=== PATIENT | female | born 1995 | race Two or more races ===

== ENCOUNTER 2020-06-06 17:13 | Inpatient (IN) ==
[2020-06-06] MEDS ORDERED: LACTATED RINGERS 1,000 ML IV PRN (17:38)
[2020-06-06] MEDS ORDERED: ONDANSETRON 4 MG/2 ML VIAL IV PRN (17:38)
[2020-06-06 18:11] LABS: Basophils % 0.3 % (0.0-0.8); Eosinophils # 0.2 10*3/uL (0.0-0.87); Hemoglobin 10.7 GM/DL (12.0-16.0); Immature Granulocytes % 0.5 %; Immature Granulocytes Absolute 0.05 #; Lymphocytes # 1.7 10*3/uL (1.4-4.0); Lymphocytes % 16.4 % (21.3-54.2); Mean Corpuscular HGB Conc 31.5 GM/DL (32-36); Mean Corpuscular Volume 79.1 FL (87-102); Mean Platelet Volume 10.3 FL (9.6-12.0); Monocytes % 4.9 % (1.7-12.7); NRBC # 0.02 10*3/uL; Neutrophils % 75.9 % (38.7-73.9); Platelet Count 243 T/CUMM (130-400); Red Cell Distribution Width 14.9 % (9.3-17.3); White Blood Count 10.6 T/CUMM (4-12)
[2020-06-06 18:34] LABS: Alanine Aminotransferase 22 U/L (13-56); Albumin 2.6 G/DL (3.4-5.0); Alkaline Phosphatase 252 U/L (45-117); Aspartate Amino Transferase 21 U/L (0-37); Bilirubin,Total < 0.39 MG/DL (0.2-1.0); Blood Urea Nitrogen 12 MG/DL (7-18); Calcium 8.7 MG/DL (8.5-10.1); Estimated Glom Filtration Rate 120 ML/MIN; Glucose 93 MG/DL (74-106); Total Protein 7.1 G/DL (6.4-8.3)
[2020-06-06] MEDS ORDERED: miSOPROStoL 100 MCG TABLET VAG SCH (23:00)
[2020-06-06] MEDS ORDERED: BUTORPHANOL 2 MG/ML VIAL IV PRN (23:45)
[2020-06-07] MEDS ORDERED: ePHEDrine 50 MG/ML VIAL IV PRN (03:14)
[2020-06-07] MEDS ORDERED: FAMOTIDINE 20 MG/2 ML VIAL IV ONE (03:14)
[2020-06-07] MEDS ORDERED: LACTATED RINGERS 1,000 ML IV ONE (03:14)
[2020-06-07] MEDS ORDERED: CITRIC ACID/SODIUM CITRATE 30 ML UDCUP PO ONE (03:14)
[2020-06-07] MEDS ORDERED: NALOXONE 0.4 MG/ML VIAL IV PRN (03:14)
[2020-06-07] MEDS ORDERED: fentaNYL 2 MCG/ROPIV 0.2% EPID 100 ML EPIDURAL SCH (03:30)
[2020-06-07 06:51] LABS: Bilirubin,Urine Negative (Negative); Blood, Urine Large mg/dL (Negative); Glucose,Urine (UA) Negative (Negative); Ketones,Urine 100 mg/dL (Negative); Mucus,Urine Occasional /LPF (Occasional); Nitrite,Urine Negative (Negative); Protein,Urine Negative; RBC,Urine 533 /HPF (0-4); Squamous Epithelial Cell,Urine Occasional /HPF (0-10); Urine Appearance YELLOW (Clear); Urine Color Yellow (Yellow); Urine Urobilinogen 0.2 EU/DL (0.2-1.0); WBC,Urine 3 /HPF (0-6)
[2020-06-07] MEDS ORDERED: TRANEXAMIC ACID 1,000 MG/10 ML VIAL ONE (07:57)
[2020-06-07] MEDS ORDERED: miSOPROStoL 200 MCG TABLET ONE (07:57)
[2020-06-07] MEDS ORDERED: METHYLERGONOVINE 0.2 MG/1 ML AMP ONE (07:58)
[2020-06-07] MEDS ORDERED: CARBOPROST TROMETHAMINE 250 MCG/ML AMP IM ONE (07:58)
[2020-06-07] MEDS ORDERED: OXYTOCIN/LR 20 UNIT/1,000 ML BAG IV ONE ×3 (07:58→10:26)
[2020-06-07] MEDS ORDERED: SODIUM CHLORIDE 0.9% 0 ML IV ONE (08:00)
[2020-06-07] MEDS ORDERED: miSOPROStoL 200 MCG TABLET PO ONE (10:20)
[2020-06-07 10:44] LABS: Cord Arterial Blood HCO3 23.1 MMOL/L
[2020-06-07] MEDS ORDERED: ACETAMINOPHEN 325 MG TABLET PO PRN (12:39)
[2020-06-07] MEDS ORDERED: IBUPROFEN 800 MG TABLET PO PRN (13:48)
[2020-06-07] MEDS ORDERED: HYDROCORTISONE 2.5% RECTAL CREAM 30 GM TUBE TOP PRN (20:46)
[2020-06-07] MEDS ORDERED: BENZOCAINE 20%/MENTHOL 0.5% SPRAY 56 GM CAN TOP PRN (20:47)
[2020-06-07] MEDS ORDERED: WITCH HAZEL PADS 100/JAR TOP PRN (20:47)
[2020-06-07] MEDS: DOCUSATE SODIUM 100 MG CAPSULE PO SCH (21:41)
[2020-06-08 06:19] LABS: Basophils % 0.1 % (0.0-0.8); Eosinophils % 0.2 % (0.00-10.9); Hematocrit 25.4 VOL% (35.7-47.0); Hemoglobin 8.2 GM/DL (12.0-16.0); Immature Granulocytes % 0.7 %; Immature Granulocytes Absolute 0.11 #; Lymphocytes # 1.8 10*3/uL (1.4-4.0); Lymphocytes % 10.9 % (21.3-54.2); Mean Corpuscular HGB Conc 32.3 GM/DL (32-36); Mean Corpuscular Volume 77.7 FL (87-102); Mean Platelet Volume 10.6 FL (9.6-12.0); Monocytes % 4.6 % (1.7-12.7); Neutrophils % 83.5 % (38.7-73.9); Platelet Count 190 T/CUMM (130-400); Red Blood Count 3.27 MC/CUMM (3.8-5.5); White Blood Count 16.5 T/CUMM (4-12)
[2020-06-08] MEDS: DOCUSATE SODIUM 100 MG CAPSULE PO SCH ×2 (08:59→20:47)
[2020-06-08] MEDS: MULTIVITAMIN (PRENATAL) TABLET PO SCH (08:59)
[2020-06-08] MEDS ORDERED: IRON (CARBONYL)/VIT C/B12/FA TABLET PO SCH (09:30)
[2020-06-09 08:20] VITALS: BP 102/54
[2020-06-09] MEDS: MULTIVITAMIN (PRENATAL) TABLET PO SCH (09:17)
[2020-06-09] MEDS: DOCUSATE SODIUM 100 MG CAPSULE PO SCH (09:17)
== END 2020-06-09 11:30 | disposition home or self-care (01) | DRG 807 ==
LOC: N.LDOUT 17:13 → N.LD 17:22 → N.OB 06-07 11:56
PROVIDERS: ADMIT Obstetrics & Gynecology; ATTEND Obstetrics & Gynecology